=== PATIENT | female | born 1960 | race Caucasian/White ===

== ENCOUNTER 2017-09-14 12:09 | Day surgery (SDC) | payer OTHER ==
[2017-09-14] MEDS ORDERED: PROPOFOL 40 ML (16:31)
== END 2017-09-14 17:25 | disposition home or self-care (01) ==
LOC: GIL 12:09
DX: Z12.11 Encounter for screening for malignant neoplasm of colon (principal); K57.90 Diverticulosis of intestine, part unspecified, without perforation or abscess without bleeding; K63.89 Other specified diseases of intestine
CPT/HCPCS: 45378

== ENCOUNTER 2017-10-13 05:43 | Outpatient (CLI) | payer OTHER ==
[2017-10-13] MEDS ORDERED: LACTATED RINGER'S 1,000 ML IV* (07:00)
[2017-10-13] MEDS ORDERED: VANCOMYCIN 1 GM 250 ML IVPB (07:00)
[2017-10-13] MEDS ORDERED: LIDOCAINE 1%/EPI 30 ML INJ (07:01)
[2017-10-13] MEDS ORDERED: THROMBIN 5000 UNIT VIAL (07:02)
[2017-10-13] MEDS ORDERED: NEOMYC/POLYMYX/BACIT 30 GM OINT (07:02)
[2017-10-13] MEDS ORDERED: BACITRACIN 50000 UNITS INJ (07:03)
[2017-10-13] MEDS: SOD CHLORIDE 0.9% 100 ML (07:41)
[2017-10-13] MEDS: IOHEXOL 300MG/ML 150 ML BTL (07:41)
[2017-10-13 08:43] LABS: COLLAGEN/ADP > 300 Secs. (40-147)
[2017-10-13 09:11] LABS: COLLAGEN/EPI > 300 Secs. (51-198)
== END 2017-10-13 09:28 | disposition home or self-care (01) ==
LOC: REC 05:43 → C/S 05:43
DX: D32.9 Benign neoplasm of meninges, unspecified (principal); M47.892 Other spondylosis, cervical region; R51 Headache; G89.29 Other chronic pain; Z53.9 Procedure and treatment not carried out, unspecified reason
CPT/HCPCS: 70470; 85576

== ENCOUNTER 2017-10-20 07:20 | Inpatient (IN) | payer OTHER ==
[2017-10-20] MEDS ORDERED: GELATIN SIZE 100 SPONGE (08:26)
[2017-10-20] MEDS ORDERED: POVIDONE IODINE 10% 28.4 GM OINT (08:27)
[2017-10-20] MEDS: LACTATED RINGER'S 1,000 ML IV* (09:00)
[2017-10-20] MEDS ORDERED: MIDAZOLAM 1 MG/ML 2 ML INJ (09:17)
[2017-10-20] MEDS: LIDOCAINE 1%/EPI 30 ML INJ (10:40)
[2017-10-20] MEDS: THROMBIN 5000 UNIT VIAL ×2 (10:45→13:00)
[2017-10-20] MEDS: BACITRACIN 50000 UNITS INJ (10:46)
[2017-10-20] MEDS: GELATIN SIZE 100 SPONGE TOP (11:20)
[2017-10-20] MEDS ORDERED: FUROSEMIDE 20 MG INJ (11:36)
[2017-10-20] MEDS ORDERED: MANNITOL 25% 50 ML INJ (11:43)
[2017-10-20] MEDS ORDERED: morphine 10 MG INJ (13:09)
[2017-10-20] MEDS ORDERED: NEOMYC/POLYMYX/BACIT 30 GM OINT (14:34)
[2017-10-20] MEDS: BACITRACIN/POLYMYXIN 28.35 GM OINT TOP (14:42)
[2017-10-20] MEDS ORDERED: PROPOFOL 40 ML (14:42)
[2017-10-20] MEDS ORDERED: LIDOCAINE 2% (SDV) 5 ML INJ (14:42)
[2017-10-20] MEDS ORDERED: GLYCOPYRROLATE 0.4 MG INJ (14:42)
[2017-10-20] MEDS ORDERED: ROCURONIUM 50 MG INJ (14:42)
[2017-10-20] MEDS ORDERED: NEOSTIGMINE 3 MG/3 ML SYRINGE (14:42)
[2017-10-20] MEDS ORDERED: METOCLOPRAMIDE 10 MG INJ (14:43)
[2017-10-20] MEDS ORDERED: ONDANSETRON 4 MG INJ (14:43)
[2017-10-20] MEDS ORDERED: DEXAMETHASONE 4 MG/ML 1 ML INJ (14:44)
[2017-10-20] MEDS ORDERED: CEFAZOLIN 1 GM INJ (14:48)
[2017-10-20] MEDS ORDERED: VANCOMYCIN IV PER PHARMACY XX (15:00)
[2017-10-20] MEDS ORDERED: DIPHENHYDRAMINE 50 MG INJ IV (15:00)
[2017-10-20] MEDS ORDERED: BETHANECHOL 25 MG TAB PO (15:00)
[2017-10-20] MEDS ORDERED: HYDROCODONE/APAP (5/325) TAB PO (15:00)
[2017-10-20] MEDS ORDERED: DIPHENHYDRAMINE 25 MG CAP PO (15:00)
[2017-10-20] MEDS: ONDANSETRON 4 MG INJ IV (15:44)
[2017-10-20] MEDS: morphine 2 MG INJ IV (15:45)
[2017-10-20] MEDS: SOD CHLORIDE 0.9% 1,000 ML IV (15:49)
[2017-10-20] MEDS: HYDROmorphONE 1 MG/ML SYG IV ×3 (16:19→22:56)
[2017-10-20] MEDS ORDERED: LORAZEPAM 1 MG TAB PO (16:30)
[2017-10-20 18:16] LABS: ANION GAP 13 (8-16); BLOOD UREA NITROGEN 17 mg/dl (7-20); CALCIUM 8.9 mg/dl (8.4-10.2); CARBON DIOXIDE 24 mmol/L (21-31); CHLORIDE 111 mmol/L (97-110); CREATININE 0.67 mg/dl (0.44-1.00); GLUCOSE 123 mg/dl (70-220); POTASSIUM 4.2 mmol/L (3.5-5.1); SODIUM 144 mmol/L (135-144)
[2017-10-20] MEDS: VANCOMYCIN 1.5 GM in SOD CHLORIDE 0.9% 250 ML IVPB (18:28)
[2017-10-21] MEDS: HYDROmorphONE 1 MG/ML SYG IV ×7 (02:50→22:57)
[2017-10-21] MEDS: SOD CHLORIDE 0.9% 1,000 ML IV (05:07)
[2017-10-21 05:38] LABS: ADD MAN DIFF? NO
[2017-10-21 05:43] LABS: WHITE BLOOD COUNT 9.2 10^3/ul (4.8-10.8)
[2017-10-21 05:43] LABS: BASOPHILS % 0.1 % (0.0-2.0); HEMATOCRIT 33.5 % (37.0-47.0); HEMOGLOBIN 11.3 g/dl (12.0-16.0); LYMPHOCYTES # 0.8 10^3/ul (0.8-2.9); LYMPHOCYTES % 8.8 % (15.0-51.0); MEAN CORPUSCULAR HEMOGLOBIN 29.8 pg (29.0-33.0); MEAN CORPUSCULAR HGB CONC 33.7 g/dl (32.0-37.0); MEAN CORPUSCULAR VOLUME 88.4 fl (82.0-101.0); MEAN PLATELET VOLUME 10.2 fl (7.4-10.4); MONOCYTE # 0.5 10^3/ul (0.3-0.9); MONOCYTES % 5.4 % (0.0-11.0); NEUTROPHIL # 7.9 10^3/ul (1.6-7.5); NEUTROPHILS % 85.5 % (39.0-77.0); PLATELET COUNT 239 10^3/UL (140-415); RED BLOOD COUNT 3.79 10^6/ul (4.20-5.40); RED CELL DISTRIBUTION WIDTH 13.8 % (11.5-14.5)
[2017-10-21] MEDS: PANTOPRAZOLE (EC) 40 MG TAB PO (05:53)
[2017-10-21] MEDS: VANCOMYCIN 1 GM 250 ML IVPB ×3 (05:54→18:25)
[2017-10-21 06:03] LABS: PHOSPHORUS 4.3 mg/dl (2.5-4.9)
[2017-10-21 06:03] LABS: MAGNESIUM 1.9 mg/dl (1.7-2.5)
[2017-10-21 06:11] LABS: HEMOGLOBIN A1C 5.8 % (0-5.9)
[2017-10-21 06:18] LABS: ANION GAP 11 (8-16); BLOOD UREA NITROGEN 14 mg/dl (7-20); CALCIUM 8.7 mg/dl (8.4-10.2); CARBON DIOXIDE 24 mmol/L (21-31); CHLORIDE 113 mmol/L (97-110); CREATININE 0.52 mg/dl (0.44-1.00); GLUCOSE 122 mg/dl (70-220); POTASSIUM 4.4 mmol/L (3.5-5.1); SODIUM 144 mmol/L (135-144)
[2017-10-21] MEDS: ACETAMINOPHEN 325 MG TAB PO (07:31)
[2017-10-21] MEDS ORDERED: CEPASTAT LOZENGE MT (11:00)
[2017-10-21] MEDS: IBUPROFEN 400 MG TAB PO (11:15)
[2017-10-21] MEDS: CEPASTAT LOZENGE MT (14:20)
[2017-10-21] MEDS: HYDROCODONE/APAP (5/325) TAB PO ×2 (17:51→22:20)
[2017-10-22] MEDS: HYDROCODONE/APAP (5/325) TAB PO ×5 (02:17→23:32)
[2017-10-22] MEDS: HYDROmorphONE 1 MG/ML SYG IV ×3 (02:18→08:54)
[2017-10-22] MEDS: PANTOPRAZOLE (EC) 40 MG TAB PO (05:15)
[2017-10-22] MEDS: VANCOMYCIN 1 GM 250 ML IVPB (06:04)
[2017-10-22 07:28] LABS: VANCOMYCIN,TROUGH 5.8 ug/ml (10.0-20.0)
[2017-10-23] MEDS: HYDROCODONE/APAP (5/325) TAB PO ×5 (03:30→19:14)
[2017-10-23] MEDS: PANTOPRAZOLE (EC) 40 MG TAB PO (07:14)
[2017-10-23] MEDS: SENNA TAB PO (10:31)
[2017-10-23] MEDS: MAGNESIUM HYDROXIDE 30ML CUP PO (10:31)
[2017-10-23] MEDS: DOCUSATE SODIUM 100 MG CAP PO (10:31)
== END 2017-10-23 19:34 | disposition home or self-care (01) | DRG 27 ==
LOC: REC 07:20 → TEL 10-21 15:00 → ICU 15:12
PROC: 00B10ZZ Excision of Cerebral Meninges, Open Approach (ICD-10-PCS; principal; 2017-10-20 09:00)
DX: D32.0 Benign neoplasm of cerebral meninges (principal); M25.532 Pain in left wrist; R07.0 Pain in throat
CPT/HCPCS: 70450; 73130-LT; 80048; 80202; 83036; 83735; 84100; 85025; 86850; 86900; 86901; 88307; 97161